=== PATIENT | female | born 1975 | race Caucasian/White ===

== ENCOUNTER 2016-06-12 11:01 | Emergency (ER) | payer MEDICAID ==
--- NOTE | 2016-06-12 11:05 | EDPHY ---
H & P Time Seen by Provider: 06/12/16 11:05 Constitutional: Initial Vital Signs Temperature (C) 36.8 C 06/12/16 11:05 Heart Rate 90 06/12/16 11:05 Respiratory Rate 16 06/12/16 11:05 Blood Pressure 176/119 H 06/12/16 11:05 O2 Sat (%) 99 06/12/16 11:05 O2 Delivery Mode Room Air Allergies/Adverse Reactions: No Known Allergies Allergy (Unverified 06/12/16 15:44) Medical Decision Making ED Course/Re-evaluation: CHIEF COMPLAINT: Psychiatric evaluation HISTORY OF PRESENT ILLNESS: This patient is a 41 year old female who presents to the Emergency Department requesting psychiatric evaluation. She has a history of grandiose and paranoid delusions. Today, she states that "it's all too much" and refers vaguely to "something going on in her neighborhood." She denies homicidal or suicidal ideation. Denies intent toward self harm. She denies any additional complaints apart from mild tremors she attributes to hypoglycemia. REVIEW OF SYSTEMS: A 10 point review of systems was performed and is negative with the exception of the elements mentioned in the history of present illness. PHYSICAL EXAM: General Appearance: Alert, well hydrated, appropriate, and non-toxic appearing. Head: Atraumatic without scalp tenderness or obvious injury Eyes: Pupils equal, round, reactive to light and accommodation, EOMI, no trauma , no injection. Ears: Clear bilaterally, no perforation, normal landmarks Nose: Atraumatic, no rhinorrhea, clear. Throat: There is no erythema or exudates, no lesions, normal tonsils, mucus membranes moist. Neck: Supple, 2+ carotid upstroke, nontender, no lymphadenopathy. Respiratory: No retractions, no distress, no wheezes, and no accessory muscle use. Lungs are clear to auscultation bilaterally. Cardiovascular: Regular rate and rhythm, no murmurs, rubs, or gallops. Bilateral carotid, radial, dorsalis pedis, and posterior tibial pulses intact. Good capillary refill all extremities. Gastrointestinal: Abdomen is soft, nontender, non-distended, no masses, no rebound, no guarding, no peritoneal signs. Musculoskeletal: Normal active ROM of all extremities, atraumatic. Neurological: Alert, appropriate, and interactive. The patient has normal DTRs and non-focal cranial nerves, motor, sensory, and cerebellar exam. Skin: No rashes, good turgor, no nodules on palpation. Past medical history: Hypoglycemia, unspecified mental health history Past surgical history: Denies Family history: Non-contributory Social history: Lives in [place] DIFFERENTIAL DIAGNOSIS: The differential diagnosis for the patient's depression included but was not limited to functional and major depression, situational depression, medication side effect, drugs, and alcohol abuse. MEDICAL DECISION MAKING: Patient is in no acute distress and is hemodynamically stable. We are awaiting psychiatric team's evaluation. Patient has known history of psychiatric disorders and is here for evaluation. 1500: Care of this patient was transferred to Dr. Angulo at change of shift. The patient has remained stable during my shift and is pending mental health evaluation. (Mark Verdugo) 1524: Patient signed over to me at 3:00 p.m. shift change. Patient here with psychosis positive methamphetamine. Will need re-evaluation. Plan is for re- evaluation I believe at 1:00 a.m.. 2323: Patient signed over to Dr. Rush at this time. Patient pending re- evaluation at 1:00 a.m.. Positive for methamphetamine. (Hood Angulo) 2325 care assumed by me from Dr. Angulo. Patient is pending re-evaluation as the tox screen is positive for meth. Patient is on M1 hold. 0135 patient has been evaluated by a Angela Jaramillo mental health project manager. Patient has now cleared that the meth his out of her system. She is not paranoid or psychotic. Symptoms are consistent with her meth use. She is ginny for safety and is safe to discharge to home. Her boyfriend will come and pick her up. I have vacated the mental health hold. (Arnie Rush) - Data Points Laboratory Results: Laboratory Results 06/12/16 11:30 06/12/16 11:30 Medications Given: Discontinued Medications Nicotine (Nicoderm Cq) 7 mg TD EDNOW ONE Stop: 06/12/16 15:31 Last Admin: 06/12/16 15:40 Dose: 7 mg Ondansetron HCl (Zofran) 4 mg IVP EDNOW ONE Stop: 06/12/16 15:20 Last Admin: 06/12/16 15:40 Dose: Not Given Ondansetron HCl (Zofran Odt) 4 mg PO EDNOW ONE Stop: 06/12/16 15:44 Last Admin: 06/12/16 15:44 Dose: 4 mg Departure - Departure Disposition: Home, Routine, Self-Care Clinical Impression: Methamphetamine abuse Condition: Good Instructions: Methamphetamine Abuse (ED) Additional Instructions: Please discontinue using meth or other substances. Follow up with primary care physician in 3-4 days for any concerns. You may contact [facility] for resources to help you with your substance abuse. Referrals: Patient,NotPresent [Unknown] - As per Instructions [facility] 24 Hours [Outside] - As per Instructions Report Scribed for: Mark Verdugo Report Scribed by: Diamante Eastman Date of Report: 06/12/16 Time of Report: 11:10
[2016-06-12 11:59] LABS: % IMMATURE GRANULYOCYTES 0.3 % (0.0-1.1); ABSOLUTE IMMATURE GRANULOCYTES 0.03 10^3/uL (0.00-0.10); ADD DIFF? NO; ADD MORPH? NO; ADD SCAN? NO; ATYPICAL LYMPHOCYTE FLAG 10 (0-99); FRAGMENT RBC FLAG 0 (0-99); HEMATOCRIT 46.7 % (38.0-47.0); HEMOGLOBIN 15.9 g/dL (12.6-16.3); LEFT SHIFT FLG 0 (0-99); LIPEMIA HEMOLYSIS FLAG 90 (0-99); MEAN CELL HEMOGLOBIN 30.3 pg (27.9-34.1); MEAN PLATELET VOLUME 10.9 fL (8.7-11.7); PLATELET CLUMPS FLAG 0 (0-99); PLATELET COUNT 183 10^3/uL (150-400); RED BLOOD CELL COUNT 5.25 10^6/uL (4.18-5.33); RED CELL DISTRIBUTION WIDTH 11.6 % (11.5-15.2)
[2016-06-12 12:19] LABS: ANION GAP 7 mEq/L (8-16); CALCIUM 8.5 mg/dL (8.5-10.4); CARBON DIOXIDE 27 mEq/l (22-31); CHLORIDE 104 mEq/L (97-110); CREATININE 0.8 mg/dL (0.6-1.0); ETHANOL SERUM < 10 mg/dL (0-10); GLOMERULAR FILTRATION RATE > 60; GLUCOSE 86 mg/dL (70-100); POTASSIUM 3.8 mEq/L (3.5-5.2); SALICYLATE < 1.0 mg/dL (2.0-20.0); SODIUM 138 mEq/L (134-144)
[2016-06-12] MEDS ORDERED: ONDANSETRON 4 MG/2 ML VIAL IVP ONE (15:19)
[2016-06-12] MEDS ORDERED: ONDANSETRON DISINTEGRATING 4 MG TAB ONE (15:25)
[2016-06-12] MEDS ORDERED: NICOTINE 7 MG/24 HR PATCH TD ONE (15:30)
[2016-06-12] MEDS ORDERED: ONDANSETRON DISINTEGRATING 4 MG TAB PO ONE (15:43)
[2016-06-12 22:47] VITALS: TEMP 98.8; O2SAT 100
[2016-06-13 00:12] VITALS: BP 146/99; PULSE 89; RESP 16
== END 2016-06-13 01:55 | disposition home or self-care (01) ==
LOC: EDUNIT#
DX: F15.10 Other stimulant abuse, uncomplicated (principal)
CPT/HCPCS: 80305; G0480; J2405